=== PATIENT | female | born 1950 | race Caucasian/White ===

== ENCOUNTER 2021-04-15 00:32 | Day surgery (SDC) | payer MEDICARE, SELFPAY ==
[2021-04-07 13:20] VITALS: BMI 37.0
--- NOTE | 2021-04-14 10:27 | P.PNAN_ITS ---
Anes - Initial Pre Proc Eval Procedure: Operation Date: 04/15/21 11:00 Proposed Procedures p Colonoscopy - Meet Cloud MD Date/Time: 04/14/21 10:27 Surgeon: Meet Cloud MD Pre Op Diagnosis: Rectal Pain Patient Data Age: 70 Gender: F Height: 1.57 m Weight: 92 kg Allergies Allergy/AdvReac Type Severity Reaction Status Date / Time No Known Allergies Allergy Verified 04/15/21 10:01 Home Medications Medication Instructions Recorded Confirmed Type acetaminophen 500 mg tablet 500 mg PO Q6H PRN 03/19/21 04/15/21 History loperamide 2 mg tablet 2 mg PO QID PRN 03/19/21 04/15/21 History ergocalciferol (vitamin D2) 1,250 1,250 mcg PO WEEKLY #12 cap 04/01/21 04/15/21 Rx mcg (50,000 unit) capsule gabapentin 300 mg capsule 300 mg PO DAILY #90 cap 04/01/21 04/15/21 Rx levothyroxine 50 mcg tablet 50 mcg PO DAILY #90 tablet 04/01/21 04/15/21 Rx montelukast 10 mg tablet 10 mg PO DAILY #90 tablet 04/01/21 04/15/21 Rx olmesartan 40 1 tablet PO DAILY #90 tablet 04/01/21 04/15/21 Rx mg-hydrochlorothiazide 12.5 mg tablet rosuvastatin 20 mg tablet 20 mg PO DAILY #90 tablet 04/01/21 04/15/21 Rx sertraline 100 mg PO BID 04/07/21 04/15/21 History Patient hx anesthesia problems: none Family hx anesthesia problems: none Results Review: All pre-operative results and documents have been reviewed as part of the pre-operative evaluation. [facility] Past Medical History Medical History Allergies Anxiety Arthritis COPD (chronic obstructive pulmonary disease) Headache Hyperlipidemia Hypertension WILL (obstructive sleep apnea) CPAP Family History Family History Father Alcoholism Mother Hypertension Depression Anxiety Cerebrovascular accident Social History Social History Smoking status: Never smoker Alcohol intake: never Substance use: never Substance use type: does not use Living arrangements: with family Gender identity (if verbalized by the patient): Female Sexual Orientation (if Verbalized by the Patient): Straight or Heterosexual Spiritual care concerns: No Anes - Eval Final PreProcedure Day of Procedure 04/14/21 10:27 Patient weight: obese Heart: regular rate and rhythm Lungs: clear to auscultation and normal air movement Airway: Mallampati scale class III Neurological: alert and oriented Last oral intake: >/= 8 hours ASA classification: III Emergent: no Anesthetic plan: proceed Anesthesia type and monitoring: general GIVS and standard monitoring Results Review: All pre-operative results and documents have been reviewed as part of the pre-operative evaluation. Informed Consent: The patient's anesthetic plan and its attendant risks and benefits were discussed with the patient/family/POA. Questions were solicited and answers provided to the satisfaction of the patient/family/POA.
--- NOTE | 2021-04-14 15:35 | WPDGICN ---
Assessment and Plan Assessment and plan (1) Colon cancer screening: Code(s): Z12.11 - Encounter for screening for malignant neoplasm of colon Status: Acute Assessment and Plan: Colonoscopy with possible biopsy or polypectomy or cautery or injection of substances. (2) Rectal pain: Code(s): K62.89 - Other specified diseases of anus and rectum Status: Acute GI Consult Note Consult date/time: 04/14/21 15:35 HPI: Sonia Chowdary is a 70 year old female Who has several complaints. She has had rectal pain and she states that she has had loose stools for many years. She also has burning on urination and has been suspected of having a urinary tract infection. One antibiotic that was prescribed she could not fford. Review of Systems Review of Systems: All systems reviewed & are unremarkable except as noted in HPI and below PMFSH Past Medical History Medical History Allergies Anxiety Arthritis COPD (chronic obstructive pulmonary disease) Headache Hyperlipidemia Hypertension WILL (obstructive sleep apnea) CPAP Family History Family History Father Alcoholism Mother Hypertension Depression Anxiety Cerebrovascular accident Social History Social History Smoking status: Never smoker Alcohol intake: never Substance use: never Substance use type: does not use Living arrangements: with family Gender identity (if verbalized by the patient): Female Sexual Orientation (if Verbalized by the Patient): Straight or Heterosexual Spiritual care concerns: No Meds Home Medications and Allergies Home Medications Medication Instructions Recorded Confirmed Type acetaminophen 500 mg tablet 500 mg PO Q6H PRN 03/19/21 04/15/21 History loperamide 2 mg tablet 2 mg PO QID PRN 03/19/21 04/15/21 History ergocalciferol (vitamin D2) 1,250 1,250 mcg PO WEEKLY #12 cap 04/01/21 04/15/21 Rx mcg (50,000 unit) capsule gabapentin 300 mg capsule 300 mg PO DAILY #90 cap 04/01/21 04/15/21 Rx levothyroxine 50 mcg tablet 50 mcg PO DAILY #90 tablet 04/01/21 04/15/21 Rx montelukast 10 mg tablet 10 mg PO DAILY #90 tablet 04/01/21 04/15/21 Rx olmesartan 40 1 tablet PO DAILY #90 tablet 04/01/21 04/15/21 Rx mg-hydrochlorothiazide 12.5 mg tablet rosuvastatin 20 mg tablet 20 mg PO DAILY #90 tablet 04/01/21 04/15/21 Rx sertraline 100 mg PO BID 04/07/21 04/15/21 History Allergies Allergy/AdvReac Type Severity Reaction Status Date / Time No Known Allergies Allergy Verified 04/15/21 10:01 Exam Const: General: alert Orientation/consciousness: patient oriented x3 Resp: Auscultation: clear to auscultation bilaterally Cardio: Rhythm: regular rhythm GI: GI Palp: Yes Soft to palpation and No Tenderness to palpation present (GI) Neuro: General: patient oriented x3 AMG Consult Billing Observation Consult [id number] New Pt Lvl 2 Strfd
[2021-04-15 10:03] VITALS: BP 168/77; PULSE 82; RESP 18; TEMP 36.1; O2SAT 96
[2021-04-15] MEDS: LACTATED RINGERS 1,000 ML 150 ML IV CONT (10:09)
[2021-04-15 11:16] VITALS: BP 148/83; PULSE 64; RESP 20; O2SAT 99
[2021-04-15 11:26] VITALS: BP 170/65; PULSE 90; RESP 20; O2SAT 99
[2021-04-15 11:36] VITALS: BP 148/61; PULSE 77; RESP 22; O2SAT 99
== END 2021-04-15 11:51 | disposition home or self-care (01) ==
PROVIDERS: PCP Family Medicine; Visit Provider Internal Medicine Gastroenterology
PROC: 0DJD8ZZ Inspection of Lower Intestinal Tract, Via Natural or Artificial Opening Endoscopic (ICD-10-PCS; CPT 45378; principal; 2021-04-15 11:00)
DX: Z12.11 Encounter for screening for malignant neoplasm of colon (principal); D12.4 Benign neoplasm of descending colon; K63.5 Polyp of colon; K57.30 Diverticulosis of large intestine without perforation or abscess without bleeding; K64.8 Other hemorrhoids; K62.89 Other specified diseases of anus and rectum; I10 Essential (primary) hypertension; J44.9 Chronic obstructive pulmonary disease, unspecified; E78.5 Hyperlipidemia, unspecified; M19.90 Unspecified osteoarthritis, unspecified site; G47.33 Obstructive sleep apnea (adult) (pediatric); F41.9 Anxiety disorder, unspecified
CPT/HCPCS: 45385; 45380; 88305; J2704; J7120

== ENCOUNTER 2022-01-08 14:17 | Outpatient (CLI) | payer MEDICARE, SELFPAY ==
--- NOTE | ~2022-01-08 | MM_ITS ---
EXAMINATION: MM screening [facility] BI w elaine HISTORY: Screening mammogram TECHNIQUE: Craniocaudal and mediolateral oblique 3-D tomosynthesis images were obtained and synthetic 2-D images were generated. CAD analysis was submitted and interpreted. COMPARISON: 03/26/2017, 04/06/2016, 03/02/2016 BREAST PARENCHYMAL COMPOSITION: There are scattered areas of fibroglandular density. FINDINGS: No suspicious mass, calcification, or architectural distortion are identified in either lyla ast to suggest malignancy. There has been no suspicious interval change. IMPRESSION: 1. No mammographic evidence of malignancy. 2. Recommend routine screening mammography in one year. BI-RADS Category 1: Negative Reviewed, dictated and finalized at location A. ORK PROGRAMMER
== END 2022-01-08 14:18 | disposition home or self-care (01) ==
PROVIDERS: PCP Family Medicine; Visit Provider Family Medicine
DX: Z12.31 Encounter for screening mammogram for malignant neoplasm of breast (principal)
CPT/HCPCS: 77063; 77067

== ENCOUNTER 2022-04-04 10:49 | Outpatient (CLI) | payer MEDICARE, SELFPAY ==
[2022-04-04 18:57] LABS: Alanine Aminotransferase 24 U/L (6-35); Albumin Level 4.7 g/dL (3.5-5.1); Alkaline Phosphatase 52 U/L (38-126); Anion Gap 7 mmol/L (8-16); Aspartate Amino Transferase 58 U/L (14-36); Bilirubin,Total 0.4 mg/dL (0.2-1.3); Blood Urea Nitrogen 19 mg/dL (7-17); Calcium 9.1 mg/dL (8.4-10.2); Carbon Dioxide 28 mmol/L (22-30); Chloride 103 mmol/L (98-107); Cholesterol 206 mg/dL (0-200); Estimated Glomerular Filt Rate > 60; Glucose 88 mg/dL (65-110); HDL Direct 75 mg/dL; Potassium 3.6 mmol/L (3.4-5.0); Sodium 138 mmol/L (137-145); Triglycerides 129 mg/dL (<150)
[2022-04-04 19:09] LABS: LDL Cholesterol Direct 76 mg/dL
[2022-04-04 20:08] LABS: Hemoglobin A1C 5.5 % (<5.7)
== END 2022-04-04 10:50 | disposition home or self-care (01) ==
LOC: ANHGOSHLAB 10:52
PROVIDERS: PCP Family Medicine; Visit Provider Family Medicine
DX: E78.5 Hyperlipidemia, unspecified (principal); Z13.29 Encounter for screening for other suspected endocrine disorder; E03.9 Hypothyroidism, unspecified; R73.01 Impaired fasting glucose; I10 Essential (primary) hypertension; Z13.228 Encounter for screening for other metabolic disorders
CPT/HCPCS: 36415; 80053; 80061; 83036; 84443

== ENCOUNTER 2022-05-30 17:51 | Emergency (ER) | payer MEDICARE, SELFPAY ==
--- NOTE | ~2022-05-30 | CT_ITS ---
EXAMINATION: CT lumbar spine wo con DATE: 05/30/2022 18:55 INDICATION: R lower back pain, SI pain . TECHNIQUE: Computed tomography (CT) of the lumbar spine was performed without intravenous contrast. A utomated exposure control and iterative reconstruction technique were employed. The dose-length produ ct was 1326.40 mGy-cm. COMPARISON: None. FINDINGS: Diverticulosis. Atherosclerotic arterial calcifications. 2.2 cm saccular infrarenal abdomin al aortic aneurysm. Punctate bilateral nonobstructing renal calculi. Multiple bilateral renal cysts. 5 nonrib-bearing lumbar-type vertebral bodies. Pedicles intact. 3 mm anterolisthesis at L5-S1, one-2 mm anterolisthesis at L4-5, both likely on a degenerative basis. No severe central canal or neural fo raminal narrowing. Multilevel facet hypertrophy and sclerosis in the lower lumbar spine. Multilevel m ild disc space narrowing and marginal osteophytosis. Moderate narrowing with vacuum phenomenon at L5- S1. Degenerative changes in the bilateral SI joints. IMPRESSION: No acute fracture or traumatic malalignment in the lumbar spine. Moderate degenerative disc disease a t L5-S1. Multilevel severe lower lumbar facet arthropathy. 2.2 cm saccular infrarenal abdominal aorti c aneurysm. Reviewed, dictated and finalized at location K. IMPRESSION: No acute fracture or traumatic malalignment in the lumbar spine. Moderate degen erative disc disease at L5-S1. Multilevel severe lower lumbar facet arthropathy . 2.2 cm saccular infrarenal abdominal aortic aneurysm.
[2022-05-30 17:58] VITALS: BP 167/44; PULSE 63; RESP 18; TEMP 36.1; O2SAT 99
--- NOTE | 2022-05-30 19:03 | ED.BACK ---
HPI - Back Pain/Injury General Chief Complaint: Back Pain/Injury <Herbert Toribio PA-C - Last Filed: 05/31/22 01:24> Stated Complaint: back pain <NATALY Devine Last Filed: 05/31/22 01:24> Time Seen by Provider: 05/30/22 17:59 <NATALY Devine Last Filed: 05/31/22 01:24> Source: patient <NATALY Devine Last Filed: 05/31/22 01:24> Mode of arrival: ambulatory <NATALY Devine Last Filed: 05/31/22 01:24> Limitations: no limitations <NATALY Devine Last Filed: 05/31/22 01:24> History of Present Illness HPI Narrative: This is a 71-year-old female who presents to the ED with chief complaint of right lower back pain onset yesterday. Reports it is located in the right low back and right SI joint area. Does not radiate. States she was just sitting down when it came on. 5 out of 10 pain yesterday and 10 out of 10 pain reported today. Does endorse some frequency of urination but this is not new. Denies hematuria or dysuria. Denies urinary retention or bowel incontinence. Denies saddle anesthesia. Denies abdominal pain, nausea, vomiting, fevers, chills. No history of long-term steroid use or IV drug use. <NATALY Devine Last Filed: 05/31/22 01:24> Related Data Home Medications: Home Medications Medication Instructions Recorded Confirmed acetaminophen 500 mg tablet 500 mg PO Q6H PRN Pain 03/19/21 03/31/22 (Tylenol Extra Strength) loperamide 2 mg tablet (Imodium 2 mg PO QID PRN Diarrhea 03/19/21 03/31/22 A-D) B6 1.7 mg-folic 400 mcg-B12 2.4 cap PO 12/06/21 03/31/22 pbu-tjxwtc-bzjfplqgrlbx oral capsule (Neuriva Plus [employer]) cetirizine 10 mg tablet (Zyrtec) 10 mg PO DAILY PRN 12/06/21 03/31/22 fluticasone propionate 50 2 spray intranasal DAILY 03/31/22 03/31/22 mcg/actuation nasal spray,suspension nitrofurantoin 100 mg PO BID PRN 03/31/22 03/31/22 monohydrate/macrocrystals 100 mg capsule oxybutynin chloride 15 mg 15 mg PO DAILY 03/31/22 03/31/22 tablet,extended release 24 hr <Herbert Toribio PA-C - Last Filed: 05/31/22 01:24> Allergies/Adverse Reactions: Allergies Allergy/AdvReac Type Severity Reaction Status Date / Time No Known Allergies Allergy Verified 05/30/22 18:11 <Herbert Toribio PA-C - Last Filed: 05/31/22 01:24> Review of Systems Review of Systems: CONSTITUTIONAL: Denies fever, chills, or sweats. EYES: Denies visual changes, redness, or discharge. ENT: Denies rhinorrhea, congestion, sore throat, or otalgia. CARDIOVASCULAR: Denies chest pain, palpitations, or edema. RESPIRATORY: Denies cough or dyspnea. GASTROINTESTINAL: Denies abdominal pain, nausea, vomiting, or diarrhea. GENITOURINARY: Denies dysuria or hematuria. SKIN: Denies rash or itching. MUSCULOSKELETAL: See HPI NEUROLOGIC: Denies headache, numbness, dizziness, or weakness. PSYCHIATRIC: Denies anxiety or depression. <Herbert Toribio PA-C - Last Filed: 05/31/22 01:24> [facility] Past Medical History Medical History: Medical History Allergies Anxiety Arthritis COPD (chronic obstructive pulmonary disease) Headache Hyperlipidemia Hypertension Hypothyroidism, unspecified WILL (obstructive sleep apnea) CPAP <Herbert Toribio PA-C - Last Filed: 05/31/22 01:24> Family History Family History: Family History Father Alcoholism Mother Hypertension Depression Anxiety Cerebrovascular accident <NATALY Devine Last Filed: 05/31/22 01:24> Social History Social History: Social History Smoking status: Never smoker Alcohol intake: never Substance use: never Substance use type: does not use Lack of Transportation: No Lack of Food: Never True Current Housing: I Have Housing Concerned About Future Housing: No Difficulty Paying
[2022-05-30] MEDS: HYDROcodone/acetaminophen (*CRX) 7.5-325 MG TABLET 1 TAB PO (19:11)
[2022-05-30 19:18] LABS: Basophils Absolute Auto 0.1 K/mm3 (0.0-0.1); Basophils Percent Auto 1.1 % (0.2-1.2); Eosinophils Absolute Auto 0.2 K/mm3 (0-0.3); Eosinophils Percent Auto 1.9 % (0-4.4); Hematocrit 39.5 % (37.0-47.0); Hemoglobin 12.7 g/dL (12.0-15.0); Immature Granulocyte Absolute 0.02 K/mm3 (0.00-0.031); Immature Granulocyte Percent A 0.3 % (0-0.5); Lymphocytes Absolute Auto 2.04 K/mm3 (0.9-3.2); Lymphocytes Percent Auto 25.6 % (18.3-44.2); Mean Corpuscular HGB Conc 32.2 g/dl (32-36); Mean Corpuscular Volume 93.2 fl (80-100); Mean Platelet Volume 9.5 fl (7.4-10.4); Monocytes Absolute Auto 0.7 K/mm3 (0.1-0.6); Monocytes Percent Auto 8.4 % (2.6-8.5); Neutrophils Percent Auto 62.7 % (45.5-73.1); Platelet Count Result 244 k/mm3 (150-375); Red Blood Count 4.24 M/mm3 (4.2-5.4); Red Cell Distribution Width 13.8 % (11.5-14.5)
[2022-05-30 19:28] LABS: Alanine Aminotransferase 25 U/L (6-35); Albumin Level 4.8 g/dL (3.5-5.1); Alkaline Phosphatase 51 U/L (38-126); Anion Gap 10 mmol/L (8-16); Aspartate Amino Transferase 27 U/L (14-36); Bilirubin,Total 0.4 mg/dL (0.2-1.3); Blood Urea Nitrogen 24 mg/dL (7-17); Calcium 9.6 mg/dL (8.4-10.2); Carbon Dioxide 26 mmol/L (22-30); Chloride 104 mmol/L (98-107); Estimated CRCL calculation 62 ml/min; Estimated Glomerular Filt Rate > 60; Glucose 107 mg/dL (65-110); Potassium 3.6 mmol/L (3.4-5.0); Sodium 140 mmol/L (137-145)
== END 2022-05-30 20:48 | disposition home or self-care (01) ==
PROVIDERS: Emergency Provider Physician Assistant; PCP Family Medicine
DX: M51.36 Other intervertebral disc degeneration, lumbar region (principal); F41.9 Anxiety disorder, unspecified; M19.90 Unspecified osteoarthritis, unspecified site; J44.9 Chronic obstructive pulmonary disease, unspecified; E78.5 Hyperlipidemia, unspecified; I10 Essential (primary) hypertension; E03.9 Hypothyroidism, unspecified; G47.30 Sleep apnea, unspecified
CPT/HCPCS: 36415; 72131; 80053; 85025; 99284; A9270

== ENCOUNTER 2023-02-02 11:38 | Outpatient (CLI) | payer MEDICARE, SELFPAY ==
[2023-02-02 19:11] LABS: Alanine Aminotransferase 17 U/L (6-35); Albumin Level 4.2 g/dL (3.5-5.1); Alkaline Phosphatase 55 U/L (38-126); Anion Gap 7 mmol/L (8-16); Aspartate Amino Transferase 35 U/L (14-36); Bilirubin,Total 0.3 mg/dL (0.2-1.3); Blood Urea Nitrogen 13 mg/dL (7-17); Calcium 9.4 mg/dL (8.4-10.2); Carbon Dioxide 28 mmol/L (22-30); Chloride 106 mmol/L (98-107); Estimated Glomerular Filt Rate > 60; Glucose 86 mg/dL (65-110); Potassium 3.7 mmol/L (3.4-5.0); Sodium 141 mmol/L (137-145)
[2023-02-02 19:12] LABS: Basophils Absolute Auto 0.1 K/mm3 (0.0-0.1); Basophils Percent Auto 1.1 % (0.2-1.2); Eosinophils Absolute Auto 0.1 K/mm3 (0-0.3); Eosinophils Percent Auto 1.8 % (0-4.4); Hematocrit 40.9 % (37.0-47.0); Hemoglobin 12.7 g/dL (12.0-15.0); Immature Granulocyte Absolute 0.02 K/mm3 (0.00-0.031); Immature Granulocyte Percent A 0.3 % (0-0.5); Lymphocytes Absolute Auto 1.76 K/mm3 (0.9-3.2); Lymphocytes Percent Auto 26.7 % (18.3-44.2); Mean Corpuscular HGB Conc 31.1 g/dl (32-36); Mean Corpuscular Hemoglobin 28.1 pg (26-34); Mean Corpuscular Volume 90.5 fl (80-100); Mean Platelet Volume 9.9 fl (7.4-10.4); Monocytes Absolute Auto 0.5 K/mm3 (0.1-0.6); Monocytes Percent Auto 7.1 % (2.6-8.5); Neutrophils Absolute Auto 4.2 K/mm3 (1.3-6.7); Platelet Count Result 264 k/mm3 (150-375); Red Blood Count 4.52 M/mm3 (4.2-5.4); Red Cell Distribution Width 13.4 % (11.5-14.5); White Blood Count 6.6 K/mm3 (4.5-10.0)
== END 2023-02-02 11:39 | disposition home or self-care (01) ==
LOC: ANHGOSHLAB 11:40
PROVIDERS: PCP Family Medicine; Visit Provider Family Medicine
DX: R53.83 Other fatigue (principal); Z13.228 Encounter for screening for other metabolic disorders; E03.9 Hypothyroidism, unspecified
CPT/HCPCS: 36415; 80053; 84443; 85025

== ENCOUNTER 2023-06-01 14:58 | Outpatient (CLI) | payer MEDICARE, SELFPAY ==
--- NOTE | ~2023-06-01 | CT_ITS ---
EXAMINATION: CT brain wo con DATE: 06/01/2023 15:18 INDICATION: Unspecified head injury. TECHNIQUE: Computed tomography (CT) of the head was performed without intravenous contrast. The mA wa s adjusted according to patient size. Iterative reconstruction technique was employed. The dose-lengt h product was 807.11 mGy-cm. COMPARISON: None FINDINGS: There is no intracranial hemorrhage, acute infarction, or abnormal intracranial mass lesion . There are scattered areas of low attenuation in the cerebral white matter. The ventricles are peter l in size. There is mild mucosal thickening in the paranasal sinuses. The mastoid air cells are peter l. The orbits are normal. There is right frontal scalp soft tissue swelling. IMPRESSION: 1. Mild nonspecific cerebral white matter disease, which likely represents chronic small vessel ische therese disease. Reviewed, dictated and finalized at location E. IMPRESSION: 1. Mild nonspecific cerebral white matter disease, which likely represents ore grader joey small vessel ischemic disease.
== END 2023-06-01 14:59 ==
LOC: GOSHIMG 15:00
PROVIDERS: PCP Family Medicine; Visit Provider Family Medicine
DX: S09.90XA Unspecified injury of head, initial encounter (principal); R90.82 White matter disease, unspecified; X58.XXXA Exposure to other specified factors, initial encounter
CPT/HCPCS: 70450

== ENCOUNTER 2023-11-02 11:31 | Outpatient (CLI) | payer MEDICARE, SELFPAY ==
[2023-11-02 15:32] LABS: Free T4 Free Thyroxine 0.79 ng/mL (0.78-2.19)
[2023-11-02 15:41] LABS: Alanine Aminotransferase 20 U/L (6-35); Albumin Level 4.4 g/dL (3.5-5.1); Alkaline Phosphatase 54 U/L (38-126); Anion Gap 9 mmol/L (4-12); Aspartate Amino Transferase 71 U/L (14-36); Bilirubin,Total 0.3 mg/dL (0.2-1.3); Blood Urea Nitrogen 26 mg/dL (7-17); Carbon Dioxide 30 mmol/L (22-30); Chloride 101 mmol/L (98-107); Cholesterol 186 mg/dL (0-200); Estimated Glomerular Filt Rate > 60; Glucose 90 mg/dL (65-110); HDL Direct 70 mg/dL; Potassium 3.7 mmol/L (3.4-5.0); Sodium 140 mmol/L (137-145); Triglycerides 156 mg/dL (<150)
[2023-11-02 15:52] LABS: LDL Cholesterol Direct 79 mg/dL
== END 2023-11-02 11:32 | disposition home or self-care (01) ==
LOC: ANHGOSHLAB 11:33
PROVIDERS: PCP Family Medicine; Visit Provider Family Medicine
DX: E78.5 Hyperlipidemia, unspecified (principal); E03.9 Hypothyroidism, unspecified; Z13.228 Encounter for screening for other metabolic disorders
CPT/HCPCS: 36415; 80053; 80061; 84439; 84443

== ENCOUNTER 2023-11-21 14:34 | Outpatient (CLI) | payer MEDICARE, SELFPAY ==
--- NOTE | ~2023-11-21 | MM_ITS ---
EXAMINATION: MM screening kit BI w elaine HISTORY: Screening TECHNIQUE: Craniocaudal and mediolateral oblique 3-D tomosynthesis images were obtained and synthetic 2-D images were generated. CAD analysis was submitted and interpreted. COMPARISON: Comparison to multiple prior studies sequentially, with oldest reviewed study dated 03/02. BREAST PARENCHYMAL COMPOSITION: Not dense: There are scattered areas of fibroglandular density. FINDINGS: Bilateral breast asymmetries are stable. There is no evidence of suspicious mass, calcifica tion, or architectural distortion to suggest malignancy in either breast. There has been no suspiciou s interval change. IMPRESSION: 1. No mammographic evidence of malignancy. 2. Recommend routine screening mammography in one year. BI-RADS Category 1: Negative Reviewed, dictated and finalized at location B.
== END 2023-11-21 14:35 | disposition home or self-care (01) ==
PROVIDERS: PCP Family Medicine; Visit Provider Family Medicine
DX: Z12.31 Encounter for screening mammogram for malignant neoplasm of breast (principal)
CPT/HCPCS: 77063; 77067

== ENCOUNTER 2024-07-02 15:40 | Outpatient (CLI) | payer MEDICARE, SELFPAY ==
--- OUTSIDE RECORDS SUMMARY | 2024-07-02 15:43 | XMS_ITS | Continuity of Care Document ---
Author Organization [facility] Address [address] [place] [address] Phone Care Team Providers Care Manager Of Global Name Role Phone Shawn Leyva MD Unavailable Unavailable Medications Medication Instructions Dosage Effective Dates (start - stop) Status Comments Ultram 50 mg tablet take 1 tablet by ora l route every 6 hours as needed - Active Crestor 20 mg tablet - Active sertraline 100 mg tablet - Active levothyroxine 50 mcg tablet - Active benzonatate 100 mg capsule - Active diclofenac sodium 75 mg tablet,delayed release - Active Vitamin D2 50,000 unit capsule - Active Procedures Procedure Date OFFICE/OUTPATIENT VISIT NEW Advance Directives Directive Yes / No Effective Date File Name No Information Encounters Encounter Description Practice Location Reason(s) For Visit Diagnoses Date Provider Providers Copied on Encounter OFFICE/OUTPAT IENT VISIT NEW [facility] , [address] [facility] [address], [place], [address], [place] tel:[phone] [facility] Primary osteoarthritis of right knee [address] [address] [facility] [address] , [place], [place], [id number] . tel:[phone] Referring Provider: Alla Harris, [address], [place], [address] . tel:[phone] Family History Family Member Type Diagnosis Age At Onset Mother Problem (finding) stroke Payers Payer name Insurance type Covered democrat ID Authoriza tion(s) K [facility] Employees OT [id number] Social History Type Description Quantity Date Captured Comments Alcohol Use Details Unknown Caffeine Use Details Unknown Tobacco Use Status Smoking Status Smoker, current stat us unknown Smoking Tobacco Use Details Cigarette: No Details Available Cigarette: No Details Available Non-Smoking Tobacco Use Details : No Details Available : No Details Available Sex Female Vital Signs Date / Time: Height Weight BMI Pulse Rate Blood Pressure Temperature Respiratory Rate Body Surface Area Head Circumference Head Circ. Percentile Wt./Mitesh. Percentile BMI percentile Pulse Ox Inhaled Ox 3:50 PM 61.00 in 99.790 kg (220.00 lbs) 41.5 7 kg/m eter (2) 124/67 mm[Hg] Chief Complaint And Reason For Visit No Information Reason For Referral Reason For Referral No Information History Of Present Illness Encounter Date Complaint History Of Prese nt Illness No Information Functional Status Date Functional Assessmen t No Information Instructions Date Instruction Additional Infor mation Apply cold 20 min per hour. Rela jany to Primary osteoarthritis of right knee Assessments Type Assessment Date assessment Primary osteoarthritis of right knee Patient Care Teams Name Effective Dates (start - stop) Status Members No Information
--- OUTSIDE RECORDS SUMMARY | 2024-07-02 15:43 | XMS_ITS | Clinical Summary ---
Author Organization [facility] [employer] Address [address] [place] [address] Care Team Providers Care Clinical Project Manager Name Role Phone Foster Rivero DO Primary Care Provider [phone] Source Comments [facility],non-owned Affiliates and Associated Physician Practices is amultiple site organization consisting of ambulatory clinics and hospital sitesin [place], [place], [place] and [place]. This disclosure is being madepursuant to the Care Everywhere program and may not contain all information available regarding this patient. 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 Gender Identity Not on file Sexual Orientation Not on file Plan of Treatment Health Maintenance Due Date Last Done Comments BONE DENSITY TESTING 1950 COLOGUARD (AGES 45-75) - COL ON CA SCREENING 1950 COLON MONITORING 1950 COLONOSCOPY - COLON CA SCREENING 1950 CT COLONOGRAPHY - COLON CA SCREENING 1950 Colorectal Cancer Screening 1950 FIT - COLON CA SCREENING 1950 FLEX SIG - COLON CA SCREENING 1950 LIPID TESTING 1950 MAMMOGRAM 1950 HEPATITIS C SCREENING 11/18/1969 DTAP/TDAP/TD VACCINES (1 - Tdap) 11/22/1970 PNEUMOCOCCAL VACCINE 50+ (1 of 1 - PCV) 11/22/2001 ZOSTER VACCINE (1 of 2) 11/22/2001 COVID-19 VACCINE ( - 2023-2 5 season) 2023 DEPRESSION SCREENING 02/07/2024 INFLUENZA VACCINE (Season Ended) 2024 Respiratory Syncytial Virus (RSV) Vaccine Pt: or over 60 yrs (1 - 1-dose 75+ series) 11/22/2026 HEPATITIS B VACCINE Aged Out No longe r eligible based on patient's age to complete this topic HIB VACCINE Aged Out No longer eligi ble based on patient's age to complete this topic HPV VACCINE Aged Out No longer eligi ble based on patient's age to complete this topic MENINGOCOCCAL (Group B) VACC INE SHARED DECISION-MAKING Aged Out No longer eligibl e based on patient's age to complete this topic MENINGOCOCCAL GROUPS A/C/Y/W VACCINE Aged Out No longer eligible b ased on patient's age to complete this topic Care Teams Clinical Project Manager Relationship Specialty Start Date End Date Foster Rivero DO [address] [place] [phone] PCP - General Family Medicine 02/09/23
--- OUTSIDE RECORDS SUMMARY | 2024-07-02 15:43 | XMS_ITS | CONTINUITY OF CARE DOCUMENT ---
Author Name valentine grijalva Address Unknown Organization [facility] Address [address] [place] [address] [address] [place] [address] Phone [phone] Care Team Providers Care Lowerator Operator Name Role Phone Adrien Mullins MD Unavailable [phone] JESS HERMOSILLO MD Unavailable JESS HERMOSILLO MD Unavailable [phone] VITAL SIGNS Date Observation Value Provider blood pressure, diastolic 96 mm[Hg] Jimmy Mendoza blood pressure, systolic 168 mm[Hg] Leyda Mendoza SOCIAL HISTORY Date Observation Value Provider smoking status quit Pamela Mendoza FUNCTIONAL STATUS Date Observation Value Provider periodic limb movement index absent (0) Pamela Mendoza INSURANCE PROVIDERS Payer name Policy type / Coverage type [place] red green party ID [employer] OPEN ACCESS Other [id number]
[2024-07-02 18:59] LABS: Alanine Aminotransferase 19 U/L (6-35); Albumin Level 4.5 g/dL (3.5-5.1); Alkaline Phosphatase 51 U/L (38-126); Anion Gap 5 mmol/L (4-12); Aspartate Amino Transferase 37 U/L (14-36); Bilirubin,Total 0.3 mg/dL (0.2-1.3); Blood Urea Nitrogen 15 mg/dL (7-17); Calcium 8.9 mg/dL (8.4-10.2); Carbon Dioxide 30 mmol/L (22-30); Chloride 105 mmol/L (98-107); Cholesterol 192 mg/dL (0-200); Estimated Glomerular Filt Rate > 60; Glucose 91 mg/dL (65-110); HDL Direct 83 mg/dL; Potassium 4.3 mmol/L (3.4-5.0); Sodium 140 mmol/L (137-145); Triglycerides 123 mg/dL (<150)
[2024-07-02 19:11] LABS: LDL Cholesterol Direct 71 mg/dL
== END 2024-07-02 15:41 | disposition home or self-care (01) ==
LOC: ANHGOSHLAB 15:40
PROVIDERS: PCP Student in an Organized Health Care Education/Training Program; Visit Provider Student in an Organized Health Care Education/Training Program
DX: E78.5 Hyperlipidemia, unspecified (principal); E03.9 Hypothyroidism, unspecified; I10 Essential (primary) hypertension
CPT/HCPCS: 36415; 80053; 80061; 84443

== ENCOUNTER 2024-09-17 16:12 | Outpatient (NON) | payer MEDICARE, SELFPAY ==
--- OUTSIDE RECORDS SUMMARY | 2024-09-17 16:15 | XMS_ITS | Clinical Summary ---
Author Organization [facility] Address [address] [place] [address] Care Team Providers Care Sales Account Executive Name Role Phone Foster Rivero DO Primary Care Provider [phone] Allergies No known active allergies Medications ipratropium-alb uterol (DUONEB) 0.5-2.5 (3) MG/3ML Solution Take 3 mLs by nebulization every 6 (six) hours as needed. 360 mL 4 Active azithromycin (ZITHROMAX) 500 mg tablet Take 1 tablet (500 mg total) by mouth daily. 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 Gender Identity Not on file Sexual Orientation Not on file Last Filed Vital Signs Vital Sign Reading Time Taken Comments Blood Pressure 110/56 02/02/2024 3:55 AM TERRAZZO WORKER Pulse 95 02/02/2024 3:55 AM TERRAZZO WORKER Temperature 36.8 C (98.2 F) 02/01/2024 11:22 PM TERRAZZO WORKER Respiratory Rate 18 02/01/2024 11:22 PM TERRAZZO WORKER Oxygen Saturation 92% 02/02/2024 3:55 AM TERRAZZO WORKER Inhaled Oxygen Concentration - - Weight 95.5 kg (210 lb 8.6 oz) 02/01/2024 11:22 PM TERRAZZO WORKER Height 157.5 cm (5' 2) 02/01/2024 11:22 PM TERRAZZO WORKER Body Mass Index 38.51 02/01/2024 11:22 PM TERRAZZO WORKER Plan of Treatment Health Maintenance Due Date Last Done Comments Colorectal Cancer Screening Colonoscopy (10 Years) 1951 Hepatitis C 11/22/1969 Mammogram Screening 1991 Annual Medicare Wellness Visit 11/22/2016 Dexa Scan (General) 11/22/2016 DTaP, Tdap and Td Vaccines (2 - Tdap) 12/03/2020 12/03/2010 COVID-19 Vaccine ( season) 2023 10/31/2022, 01/22/2021, 05/12/2020, Additional history exists Pneumococcal Vaccine: 50+ Years Completed 09/18/2022, 12/14/2017, 11/04/2012, Additional history exists RSV Immunization or 60+ Years Completed 10/31/2022 Zoster Vaccines Completed 05/06/2023, 01/01/2019 Meningococcal B Vaccine Aged Out No l onger eligible based on patient's age to complete this topic Meningococcal Vaccine Aged Out No beto jesenia eligible based on patient's age to complete this topic RSV Immunizations Under 20 Months Aged Out No longer eligible based on patient's age to complete this topic Insurance [employer] Care Teams Sales Account Executive Relationship Specialty Start Date End Date Foster Rivero DO [facility] [place] [id number] PCP - General FAMILY PRACTICE 02/02/24
--- OUTSIDE RECORDS SUMMARY | 2024-09-17 16:15 | XMS_ITS | Clinical Summary ---
Author Organization [facility] [employer] Address [address] [place] [address] Care Team Providers Care Scale Shooter Name Role Phone Foster Rivero DO Primary Care Provider [phone] Source Comments [facility],non-owned Affiliates and Associated Physician Practices is amultiple site organization consisting of ambulatory clinics and hospital sitesin [place], [place], [place] and [place]. This disclosure is being madepursuant to the Care Everywhere program and may not contain all information available regarding this patient. 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
== END 2024-09-17 16:13 | disposition home or self-care (01) ==
LOC: ANHGOSHLAB 16:13
PROVIDERS: PCP Student in an Organized Health Care Education/Training Program; Visit Provider Student in an Organized Health Care Education/Training Program
DX: R39.9 Unspecified symptoms and signs involving the genitourinary system (principal)
CPT/HCPCS: 87086

== ENCOUNTER 2024-12-20 14:08 | Outpatient (CLI) | payer MEDICARE, SELFPAY ==
--- NOTE | ~2024-12-20 | XR_ITS ---
EXAMINATION: XR chest 2V, 12/20/2024 14:16 [employer]ICULTURAL SERVICES SUPERVISOR HISTORY: Bronchitis, sob x 3 weeks, cough, congestion, no surg, no in COMPARISON: No comparisons available. Technique: 2 views obtained. Findings: The lungs are clear, no effusion. No pneumothorax. Heart is normal size. Mediastinal and hilar contours are within normal limits. Bony thorax no acute abnormality. Impression: No acute cardiopulmonary abnormality. Reviewed, dictated and finalized at location P. [employer] SERVICES SUPERVISOR Impression: No acute cardiopulmonary abnormality.
== END 2024-12-20 14:09 | disposition home or self-care (01) ==
LOC: GOSHIMG 14:10
PROVIDERS: PCP Student in an Organized Health Care Education/Training Program; Visit Provider Student in an Organized Health Care Education/Training Program
DX: J40 Bronchitis, not specified as acute or chronic (principal)
CPT/HCPCS: 71046